=== PATIENT | female | born 1960 | race African-American/Black ===

== ENCOUNTER 2019-04-24 07:58 | Emergency (ER) | payer OTHER ==
[~2019-04-24] VITALS: Ht 154.9 cm; Wt 71.2 kg
[2019-04-24 08:13] VITALS: BP 123/58
[2019-04-24] MEDS ORDERED: methylPREDNISolone SOD SUCC 125 MG/2 ML VL IM ONE (08:30)
[2019-04-24] MEDS ORDERED: EPINEPHrine HCL 1 MG/1 ML AMP SC ONE (08:30)
[2019-04-24] MEDS ORDERED: diphenhdrAMINE HCL 50 MG/1 ML VL IM ONE (08:30)
== END 2019-04-24 11:30 | disposition home or self-care (01) ==
LOC: ER 07:58
DX: T78.40XA Allergy, unspecified, initial encounter (principal); Z88.8 Allergy status to other drugs, medicaments and biological substances; I10 Essential (primary) hypertension; X58.XXXA Exposure to other specified factors, initial encounter
CPT/HCPCS: 96372; 99283; J0171; J1200; J2930